=== PATIENT | female | born 1965 | race Two or more races ===

== ENCOUNTER 2022-02-26 07:45 | Day surgery (SDC) | payer OTHER ==
[~2022-02-26 07:45] MED LIST: AZILECT1 MG PO; B COMPLEX1 EAC1 PO; CYMBAL PO; ESTAZOLAM2 MG PO; HYDROCHLOROTH12.5 MG PO; PEPCID AC20 MG PO; PLAQUENIL PO; PROTONIX40 MG PO; VISTARIL PO
[2022-02-26] MEDS ORDERED: PERCOCET 5-3251 EACH PO (12:50)
== END 2022-02-26 15:50 | disposition home or self-care (01) ==
LOC: CIR.AMB 07:45
PROVIDERS: ATTEND Surgery
DX: E04.1 Nontoxic single thyroid nodule (principal); E06.3 Autoimmune thyroiditis; I10 Essential (primary) hypertension; G43.909 Migraine, unspecified, not intractable, without status migrainosus; G20 Parkinson's disease; M19.90 Unspecified osteoarthritis, unspecified site; M79.7 Fibromyalgia; K21.9 Gastro-esophageal reflux disease without esophagitis